=== PATIENT | male | born 1985 | race Caucasian/White ===

== ENCOUNTER 2016-11-14 19:03 | Emergency (ER) | payer SELFPAY ==
[~2016-11-14] VITALS: Ht 195.6 cm; Wt 106.6 kg
[~2016-11-14 19:03] MED LIST: HYDR25CA1 PO
[2016-11-14 19:14] VITALS: BP 150/100
--- NOTE | 2016-11-14 19:18 | NUR ---
31 Y/O M W/C/O HEADACHES, BLURRED VISION,AND SINUS PRESSURE X 1 MTH ON AND OFF. DENIES ANY FEVER, N/V. NO S/S OF DISTRESS NOTED, O2 SAT 99%. ER MD MADE AWARE.
--- NOTE | 2016-11-14 19:25 | NUR ---
Patient being evaluated by physician at bedside.
[2016-11-14] MEDS ORDERED: KETOROLAC 60 MG/2 ML VIAL IM ONE (20:10)
[2016-11-14 21:01] VITALS: BP 145/87
--- NOTE | 2016-11-14 21:01 | NUR ---
Patient discharged with v/s stable. Written and verbal after care instructions given and explained. Patient alert, oriented and verbalized understanding of instructions. Ambulatory with steady gait. All questions addressed prior to discharge. ID band removed. Patient advised to follow up with PMD THIS WK OR RETURN TO ER IF CONDITION WORSENS. Rx of MOTRIN, TYLENOL WITH CODEINE AND FREXERIL given. Patient educated on indication of medication including possible reaction and side effects. Opportunity to ask questions provided and answered.
== END 2016-11-14 21:01 | disposition home or self-care (01) ==
LOC: MED 19:03
DX: S16.1XXA Strain of muscle, fascia and tendon at neck level, initial encounter (principal); M62.838 Other muscle spasm; R03.0 Elevated blood-pressure reading, without diagnosis of hypertension; G43.909 Migraine, unspecified, not intractable, without status migrainosus; R42 Dizziness and giddiness; X58.XXXA Exposure to other specified factors, initial encounter; Y93.89 Activity, other specified; Y92.89 Other specified places as the place of occurrence of the external cause; Y99.8 Other external cause status
CPT/HCPCS: 70450; 72040; 96372; 99284; J1885

== ENCOUNTER 2017-06-07 13:05 | Emergency (ER) | payer MEDICAID, OTHER ==
[~2017-06-07] VITALS: Ht 195.6 cm; Wt 104.3 kg
[2017-06-07 13:22] VITALS: BP 142/106
--- NOTE | 2017-06-07 13:23 | NUR ---
Patient ambulated to bed 11.
--- NOTE | 2017-06-07 13:24 | NUR ---
PATIENT PRESENTS TO FOR EVALUATION OF EXPOSURE TO MENINGITIS . 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 DENIES N/V/D; SKIN IS PINK/WARM/DRY; AAOX4 WITH EVEN AND STEADY GAIT; LUNGS CLEAR BL; HR EVEN AND REGULAR; PT DENIES ANY FEVER, CP, SOB, OR COUGH AT THIS TIME; PATIENT STATES PAIN OF 6/10 AT THIS TIME; VSS; PATIENT POSITIONED FOR COMFORT; HOB ELEVATED; BEDRAILS UP X2; BED DOWN. ER MD MADE AWARE OF PT STATUS.
--- NOTE | 2017-06-07 13:40 | NUR ---
DR. MAK AT BEDSIDE.
[2017-06-07 13:53] VITALS: BP 138/91
--- NOTE | 2017-06-07 13:53 | NUR ---
Patient discharged with v/s stable. Written and verbal after care instructions given and explained. Patient verbalized understanding. Ambulatory with steady gait. All questions addressed prior to discharge. Advised to follow up with PMD.
== END 2017-06-07 13:53 | disposition home or self-care (01) ==
LOC: MED 13:05
DX: Z00.00 Encounter for general adult medical examination without abnormal findings (principal); F17.210 Nicotine dependence, cigarettes, uncomplicated
CPT/HCPCS: 99283

== ENCOUNTER 2018-05-10 12:00 | Emergency (ER) | payer OTHER ==
[~2018-05-10] VITALS: Ht 195.6 cm; Wt 113.4 kg
[2018-05-10 12:02] VITALS: BP 156/95
--- NOTE | 2018-05-10 12:14 | NUR ---
PT LWBS AT THIS TIME. PT STATES THAT HE HAS A FAMILY EMERGENCY. ER MD NOTIFIED.
== END 2018-05-10 12:14 | disposition left against medical advice (07) ==
LOC: MED 12:00
DX: R51 Headache (principal); Z53.21 Procedure and treatment not carried out due to patient leaving prior to being seen by health care provider

== ENCOUNTER 2020-05-11 23:20 | Emergency (ER) | payer OTHER ==
[~2020-05-11] VITALS: Ht 195.6 cm; Wt 113.9 kg
[2020-05-11 23:27] VITALS: BP 148/95
--- NOTE | 2020-05-11 23:30 | NUR ---
To ED bed 02
--- NOTE | 2020-05-11 23:41 | NUR ---
35 year old male coming in for c/o cellulitis on posterior side of right forearm. states happened x 3 days ago after missing a vein when injecting methamphetamines into vein. states "my veins rolled when I injected, and I never miss". no other s/sx reported or observed. awaiting MSE. pmhx: denies nka
[2020-05-11 23:44] VITALS: BP 148/95
--- NOTE | 2020-05-11 23:47 | NUR ---
Dr. Hall at bedside assessing pt.
--- NOTE | 2020-05-12 00:05 | NUR ---
Patient discharged with v/s stable. Written and verbal after care instructions given and explained. Patient alert, oriented and verbalized understanding of instructions. Ambulatory with steady gait. All questions addressed prior to discharge. ID band removed. Patient advised to follow up with PMD. Rx of bactrim and keflex given. Patient educated on indication of medication including possible reaction and side effects. Opportunity to ask questions provided and answered.
== END 2020-05-12 00:06 | disposition home or self-care (01) ==
LOC: MED 23:20
DX: L03.113 Cellulitis of right upper limb (principal); F15.10 Other stimulant abuse, uncomplicated
CPT/HCPCS: 99284

== ENCOUNTER 2021-12-27 15:14 | Emergency (ER) | payer OTHER ==
--- NOTE | 2021-12-27 15:25 | NUR ---
CALLED X 1. NO SHOW.
--- NOTE | 2021-12-27 15:29 | NUR ---
CALLED [phone]. NO ANSWERING. Addendum: 12/27/21 at 1531 by [facility] PATIENT LEFT WITHOUT BEING SEEN BY DR. MANCILLA. NO FURTHER CARE PROVIDED FOR PATIENT.
== END 2021-12-27 15:29 | disposition left against medical advice (07) ==
LOC: MED 15:14
DX: R07.89 Other chest pain (principal); Z53.21 Procedure and treatment not carried out due to patient leaving prior to being seen by health care provider